=== PATIENT | female | born 1935 | race African-American/Black ===

== ENCOUNTER → 2018-09-24 | Outpatient (CLI) | payer OTHER ==
[2018-09-24 13:37] LABS: CREATININE 1.1 mg/dL (0.6-1.0)
== END ==
LOC: MRI 12:20
PROVIDERS: Psychiatry & Neurology Neurology
DX: G31.9 Degenerative disease of nervous system, unspecified (principal); I67.82 Cerebral ischemia; G47.9 Sleep disorder, unspecified; G44.209 Tension-type headache, unspecified, not intractable; Z85.3 Personal history of malignant neoplasm of breast

== ENCOUNTER → 2019-11-01 | Outpatient (CLI) | payer OTHER | LOC: MRI 09:20 | DX: R42 Dizziness and giddiness (principal); R51 Headache; J34.9 Unspecified disorder of nose and nasal sinuses ==